=== PATIENT | female | born 1985 | race Caucasian/White ===

== ENCOUNTER 2017-09-02 08:40 | Emergency (ER) | payer MEDICAID ==
[2017-09-02] MEDS: KETOROLAC 30 MG INJ IM (10:12)
== END 2017-09-02 10:26 | disposition home or self-care (01) ==
LOC: FTE 08:40
DX: M72.2 Plantar fascial fibromatosis (principal)
CPT/HCPCS: 81025; 96372; 99284-25

== ENCOUNTER 2018-11-18 19:33 | Emergency (ER) | payer MEDICAID ==
[2018-11-18 23:25] LABS: ADD UMIC NO; UR ASCORBIC ACID NEGATIVE (NEGATIVE); UR BILIRUBIN (Dip) NEGATIVE (NEGATIVE); UR BLOOD (Dip) NEGATIVE (NEGATIVE); UR CLARITY CLEAR (CLEAR); UR COLOR COLORLESS (YELLOW); UR GLUCOSE (Dip) NEGATIVE (NEGATIVE); UR KETONES (Dip) NEGATIVE (NEGATIVE); UR LEUKOCYTE ESTERASE (Dip) NEGATIVE Leu/ul (NEGATIVE); UR NITRITE (Dip) NEGATIVE (NEGATIVE); UR SPECIFIC GRAVITY (Dip) 1.001 (1.003-1.030); UR TOTAL PROTEIN (Dip) NEGATIVE (NEGATIVE); UR UROBILINOGEN (Dip) NEGATIVE (NEGATIVE)
== END 2018-11-19 01:48 | disposition home or self-care (01) ==
LOC: FTE 11-19 01:48
DX: N83.201 Unspecified ovarian cyst, right side (principal)
CPT/HCPCS: 76830; 76856; 81003; 84703; 99284-25